=== PATIENT | female | born 1970 | race Caucasian/White ===

== ENCOUNTER 2024-10-19 16:48 | Observation (INO) | payer BC ==
--- NOTE | 2024-10-19 17:57 | ED ---
Recheck HPI - General Chief Complaint: Recheck/Abnormal Lab/Rx Stated Complaint: abn labs Time Seen by Provider: 10/19/24 17:56 Source: patient, RN notes reviewed Mode of arrival: ambulatory Limitations: no limitations - History of Present Illness Initial Comments: 54-year-old female sent by PCP for low hemoglobin. Patient states over the past year she has been dealing with heavy menstrual bleeding with clots as large as grapes. States most recent bleeding began 1 week ago and states she has been saturating through 1 pad per hour. States she has been feeling fatigued, however denies any chest pain, shortness of breath, dizziness. Has upcoming appointment with SOFT SUGAR OPERATOR HEAD in November. Denies blood thinners. Denies any other health conditions or history of blood clots - Related Data Allergies Allergy/AdvReac Type Severity Reaction Status Date / Time Penicillins Allergy Unknown Verified 10/19/24 17:09 Review of Systems ROS Statement: Those systems with pertinent positive or pertinent negative responses have been documented in the HPI. ROS Other: All systems not noted in ROS Statement are negative. Past Medical History Past Medical History: No Reported History History of Any Multi-Drug Resistant Organisms: None Reported Past Surgical History: Adenoidectomy, Tonsillectomy Past Psychological History: No Psychological Hx Reported Smoking Status: Never smoker Past Alcohol Use History: Occasional Past Drug Use History: None Reported General Exam - General Exam Comments Initial Comments: Visual Physical Exam Vital signs reviewed General: Well-appearing, nontoxic, no acute distress. Head: Normocephalic, atraumatic Eyes: PERRLA, EOMI ENT: Airway patent Chest: Nonlabored breathing Skin: No visual rash, normal skin tone Neuro: Alert and oriented 3 Musculoskeletal: No gross abnormalities Limitations: no limitations General appearance: alert, in no apparent distress, other Eye exam: Present: normal appearance, PERRL, EOMI. Absent: scleral icterus, conjunctival injection, periorbital swelling ENT exam: Present: normal exam, mucous membranes moist Respiratory exam: Present: normal lung sounds bilaterally. Absent: respiratory distress, wheezes, rales, rhonchi, stridor Cardiovascular Exam: Present: regular rate, normal rhythm, normal heart sounds. Absent: systolic murmur, diastolic murmur, rubs, gallop, clicks GI/Abdominal exam: Present: soft, normal bowel sounds. Absent: distended, tenderness, guarding, rebound, rigid Back exam: Present: normal inspection Neurological exam: Present: alert, oriented X3 Psychiatric exam: Present: normal affect, normal mood Skin exam: Present: warm, dry, intact, normal color, pallor. Absent: rash Course Vital Signs 10/19/24 10/19/24 10/19/24 17:07 19:43 20:25 Temperature 98.2 F 98.7 F 98.4 F Pulse Rate 109 H 86 79 Respiratory 18 18 16 Rate Blood Pressure 138/82 147/76 130/73 O2 Sat by Pulse 100 100 100 Oximetry 10/19/24 10/19/24 10/19/24 20:35 20:55 23:07 Temperature 98.9 F 98.2 F 98.3 F Pulse Rate 81 80 87 Respiratory 16 12 14 Rate Blood Pressure 131/78 138/71 132/76 O2 Sat by Pulse 100 100 100 Oximetry Medical Decision Making - Medical Decision Making I completed the quick note portion of this chart signed Karmen Wang PA-C Was pt. sent in by a medical professional or institution (KIRSTIN Gambino, WILDLIFE FORENSIC GENETICIST, urgent care, hospital, or long term...) When possible be specific @ -No Did you speak to anyone other than the patient for history (EMS, parent, family, police, friend...)? What history was obtained from this source @ -No Did you review nursing and triage notes (agree or disagree)? Why? @ -I reviewed and agree with nursing and triage notes Were old charts reviewed (outside hosp., previous admission, EMS record, old EKG, old radiological studies, urgent care reports/EKG's, long term records)? Report findings @ -No old charts were reviewed Differential Diagnosis (chest pain, altered mental status, abdominal pain women, abdominal pain men, vaginal bleeding, weakness, fever, dyspnea, syncope, headache, dizziness, GI bleed, back pain, seizure, CVA, palpatations, mental health, musculoskeletal)? @ -Differential Vaginal Bleeding: dysfunctional uterine bleeding, uterine fibroids, this is not meant to be an all-inclusive list. EKG interpreted by me (3pts min.). @ -None X-rays interpreted by me (1pt min.). @ -None done CT interpreted by me (1pt min.). @ -None done U/S interpreted by me (1pt. min.). @ -Ultrasound pelvis reveals uterine fibroid What testing was considered but not performed or refused? (CT, X-rays, U/S, labs)? Why? @ -None What meds were considered but not given or refused? Why? @ -None Did you discuss the management of the patient with other professionals (professionals i.e. , PA, WILDLIFE FORENSIC GENETICIST, lab, RT, psych nurse, family welfare social work professor, chemical engineering technologist, teacher, public health service officer, case management social worker)? Give summary @ -I spoke with Dr. Mckenzie check writer salesperson [facility] OPERATOR [facility] who accepts admission and recommends Provera 10 mg 3 times daily Was smoking cessation discussed for >3mins.? @ -No Was critical care preformed (if so, how long)? @ -No Were there social determinants of health that impacted care today? How? (Homelessness, low income, unemployed, alcoholism, drug addiction, transportation, low edu. Level, literacy, decrease access to med. care, half-way, rehab)? @ -No Was there de-escalation of care discussed even if they declined (Discuss DNR or withdrawal of care, Hospice)? DNR status @ -No What co-morbidities impacted this encounter? (DM, HTN, Smoking, COPD, CAD, Can cer, CVA, ARF, Chemo, Hep., AIDS, mental health diagnosis, sleep apnea, morbid obesity)? @ -None Was patient admitted / discharged? Hospital course, mention meds given and route, prescriptions, significant lab abnormalities, going to OR and other pertinent info. @ -Admitted. This is a 54-year-old female presenting for vaginal bleeding x 1 week with fatigue. Saturating through 1 pad per hour. Patient is initially tachycardic, however otherwise vital signs within acceptable limits. Hemoglobin is found to be 4.9. Ultrasound pelvis reveals uterine fibroid. Patient was started on 3 units of packed red blood cells. I spoke with Dr. Mckenzie on- call [facility] OPERATOR [facility] who accepts admission and recommends Provera 10 mg 3 times daily. Case was discussed with my ED attending Dr. Quinones. Undiagnosed new problem with uncertain prognosis? @ -No Drug Therapy requiring intensive monitoring for toxicity (Heparin, Nitro, Insulin, Cardizem)? @ -No Were any procedures done? @ -No Diagnosis/symptom? @ -Low hemoglobin, menorrhagia Acute, or Chronic, or Acute on Chronic? @ -Acute Uncomplicated (without systemic symptoms) or Complicated (systemic symptoms)? @ -Complicated Side effects of treatment? @ -No Exacerbation, Progression, or Severe Exacerbation? @ -No Poses a threat to life or bodily function? How? (Chest pain, USA, PR, pneumonia, PE, COPD, DKA, ARF, appy, cholecystitis, CVA, Diverticulitis, Homicidal, Suicidal, threat to staff... and all critical care pts) @ -Yes - Lab Data Result diagrams: 10/19/24 18:19 10/19/24 18:19 Lab Results 10/19/24 10/19/24 10/19/24 Range/Units 18:19 18:19 18:19 WBC 6.6 (3.8-10.6) k/uL RBC 3.00 L (3.80-5.40) m/uL Hgb 4.9 L* (11.4-16.0) gm/dL Hct 18.9 L* (34.0-46.0) % MCV 63.0 L (80.0-100.0) fL MCH 16.2 L (25.0-35.0) pg MCHC 25.7 L (31.0-37.0) g/dL RDW 19.0 H (11.5-15.5) % Plt Count 451 H (150-450) k/uL MPV 7.3 Neutrophils % 58 % Lymphocytes % 32 % Monocytes % 5 % Eosinophils % 1 % Basophils % 1 % Neutrophils # 3.9 (1.3-7.7) k/uL Lymphocytes # 2.1 (1.0-4.8) k/uL Monocytes # 0.3 (0-1.0) k/uL Eosinophils # 0.1 (0-0.7) k/uL Basophils # 0.0 (0-0.2) k/uL Manual Slide Review Performed Large Platelets Present Polychromasia Present Hypochromasia Marked Poikilocytosis Slight Anisocytosis Slight Microcytosis Marked Ovalocytes Present PT 10.1 (10.0-12.5) sec INR 0.9 (<1.2) APTT 20.4 L (22.0-30.0) sec Sodium 137 (137-145) mmol/L Potassium 3.9 (3.5-5.1) mmol/L Chloride 107 (98-107) mmol/L Carbon Dioxide 21 L (22-30) mmol/L Anion Gap 9 mmol/L BUN 10 (7-17) mg/dL Creatinine 0.53 (0.52-1.04) mg/dL Est GFR (CKD-EPI)AfAm >90 (>60 ml/min/1.73 sqM) Est GFR (CKD-EPI)NonAf >90 (>60 ml/min/1.73 sqM) Glucose 108 H (74-99) mg/dL Calcium 9.4 (8.4-10.2) mg/dL Total Bilirubin 0.3 (0.2-1.3) mg/dL AST 20 (14-36) U/L ALT 11 (4-34) U/L Alkaline Phosphatase 43 (38-126) U/L Total Protein 7.2 (6.3-8.2) g/dL Albumin 4.8 (3.5-5.0) g/dL Urine HCG, Qual (Not Detectd) Blood Type Blood Type Recheck Bld Type Recheck Status Antibody Screen Crossmatch 10/19/24 10/19/24 Range/Units 18:19 19:46 WBC (3.8-10.6) k/uL RBC (3.80-5.40) m/uL Hgb (11.4-16.0) gm/dL Hct (34.0-46.0) % MCV (80.0-100.0) fL MCH (25.0-35.0) pg MCHC (31.0-37.0) g/dL RDW (11.5-15.5) % Plt Count (150-450) k/uL MPV Neutrophils % % Lymphocytes % % Monocytes % % Eosinophils % % Basophils % % Neutrophils # (1.3-7.7) k/uL Lymphocytes # (1.0-4.8) k/uL Monocytes # (0-1.0) k/uL Eosinophils # (0-0.7) k/uL Basophils # (0-0.2) k/uL Manual Slide Review Large Platelets Polychromasia Hypochromasia Poikilocytosis Anisocytosis Microcytosis Ovalocytes PT (10.0-12.5) sec INR (<1.2) APTT (22.0-30.0) sec Sodium (137-145) mmol/L Potassium (3.5-5.1) mmol/L Chloride (98-107) mmol/L Carbon Dioxide (22-30) mmol/L Anion Gap mmol/L BUN (7-17) mg/dL Creatinine (0.52-1.04) mg/dL Est GFR (CKD-EPI)AfAm (>60 ml/min/1.73 sqM) Est GFR (CKD-EPI)NonAf (>60 ml/min/1.73 sqM) Glucose (74-99) mg/dL Calcium (8.4-10.2) mg/dL Total Bilirubin (0.2-1.3) mg/dL AST (14-36) U/L ALT (4-34) U/L Alkaline Phosphatase (38-126) U/L Total Protein (6.3-8.2) g/dL Albumin (3.5-5.0) g/dL Urine HCG, Qual Not Detected (Not Detectd) Blood Type A Positive Blood Type Recheck A Pos Bld Type Recheck Status No Antibody Screen NEGATIVE Crossmatch See Detail Disposition Clinical Impression: Low hemoglobin, Menorrhagia Disposition: ADMITTED IP TO THIS [facility] Referrals: Jensen Simons MD [Primary Care Provider] - 1-2 days Time of Disposition: 22:29
[2024-10-19 18:45] LABS: Anisocytosis Slight; Basophils % (A) 1 %; Eosinophils # (A) 0.1 k/uL (0-0.7); Eosinophils % (A) 1 %; Hypochromasia Marked; Lymphocytes # (A) 2.1 k/uL (1.0-4.8); Lymphocytes % (A) 32 %; MCH 16.2 pg (25.0-35.0); MCHC 25.7 g/dL (31.0-37.0); Mean Platelet Volume 7.3; Microcytosis Marked; Monocytes # (A) 0.3 k/uL (0-1.0); Monocytes % (A) 5 %; Neutrophils # (A) 3.9 k/uL (1.3-7.7); Neutrophils % (A) 58 %; Platelet Count 451 k/uL (150-450); Poikilocytosis Slight; WBC 6.6 k/uL (3.8-10.6)
[2024-10-19 18:55] LABS: ALT 11 U/L (4-34); AST 20 U/L (14-36); African American GFR (CKD) >90 (>60 ml/min/1.73 sqM); Albumin 4.8 g/dL (3.5-5.0); Alkaline Phosphatase 43 U/L (38-126); Anion Gap 9 mmol/L; Blood Urea Nitrogen 10 mg/dL (7-17); Calcium 9.4 mg/dL (8.4-10.2); Carbon Dioxide 21 mmol/L (22-30); Chloride 107 mmol/L (98-107); Glucose 108 mg/dL (74-99); Non-African American GFR(CKD) >90 (>60 ml/min/1.73 sqM); Potassium 3.9 mmol/L (3.5-5.1); Sodium 137 mmol/L (137-145); Total Bilirubin 0.3 mg/dL (0.2-1.3); Total Protein 7.2 g/dL (6.3-8.2)
[2024-10-19 18:59] LABS: HGB 4.9 gm/dL (11.4-16.0)
[2024-10-19 19:00] LABS: HCT 18.9 % (34.0-46.0); INR 0.9 (<1.2); Prothrombin Time 10.1 sec (10.0-12.5)
[2024-10-19 19:08] LABS: Partial Thromboplastin Time 20.4 sec (22.0-30.0)
--- NOTE | 2024-10-19 19:09 | US ---
EXAMINATION TYPE: US transvaginal DATE OF EXAM: 10/19/2024 COMPARISON: NONE CLINICAL INDICATION: Female, 54 years old with history of heavy vaginal bleeding; Patient states heav y vaginal bleeding and irregular periods for 1 year. . No pain TECHNIQUE: Transvaginal (TV). Transabdominal grayscale sonographic images of the pelvis were acquired. Transvaginal sonographic im ages were medically necessary to better assess the following anatomy: Endometrium Doppler imaging: Not performed. FINDINGS: Date of LMP: 10/08/2024 EXAM MEASUREMENTS: Uterus: 10.9 x 8.3 x 8.4 cm Endometrial Stripe: 1.2 cm Right Ovary: Obscured by overlying bowel gas Left Ovary: Obscured by overlying bowel gas 1. Uterus: Anteverted There are multiple heterogeneous lesions with posterior shadowing seen, larges t measuring 5.5 x 5.3 x 5.5cm within the right side of the uterus. Probable fibroids vs other etiolog y 2. Endometrium: wnl 3. Right Ovary: Obscured by overlying bowel gas 4. Left Ovary: Obscured by overlying bowel gas 5. Bilateral Adnexa: wnl 6. Posterior cul-de-sac: wnl IMPRESSION: Fibroid uterus. [facility], , 10/19/2024 7:07 PM
[2024-10-19 19:32] LABS: Polychromasia Present
[2024-10-19 19:33] LABS: Ovalocytes Present
[2024-10-19 19:34] LABS: Large Platelets Present
[2024-10-19] MEDS ORDERED: ONDANSETRON 4 MG/2 ML VIAL IVP PRN (22:23)
[2024-10-19] MEDS ORDERED: NALOXONE 0.4 MG/ML 1 ML VIAL IV PRN (22:23)
[2024-10-19] MEDS ORDERED: MORPHINE SULFATE 4 MG/ML SYRINGE IV PRN (22:23)
[2024-10-19] MEDS ORDERED: HYDROmorphone 0.5 MG/0.5 ML SYRINGE IVP PRN (22:23)
[2024-10-20 03:47] LABS: % Iron Saturation 1.83 (12.00-45.00); Ferritin 2.6 ng/mL (10.0-291.0)
[2024-10-20] MEDS ORDERED: ACETAMINOPHEN TAB 325 MG TAB PO PRN (07:20)
[2024-10-20] MEDS ORDERED: IBUPROFEN 600 MG TAB PO PRN (07:20)
[2024-10-20 07:45] LABS: Anisocytosis Moderate; Basophils # (A) 0.1 k/uL (0-0.2); Basophils % (A) 1 %; Eosinophils # (A) 0.1 k/uL (0-0.7); Eosinophils % (A) 3 %; Hypochromasia Marked; Lymphocytes # (A) 1.4 k/uL (1.0-4.8); Lymphocytes % (A) 29 %; MCH 21.4 pg (25.0-35.0); MCHC 30.1 g/dL (31.0-37.0); Mean Platelet Volume 8.5; Microcytosis Marked; Monocytes # (A) 0.3 k/uL (0-1.0); Monocytes % (A) 7 %; Neutrophils # (A) 2.7 k/uL (1.3-7.7); Neutrophils % (A) 57 %; Platelet Count 355 k/uL (150-450); Poikilocytosis Marked; RBC 3.95 m/uL (3.80-5.40); RDW 21.7 % (11.5-15.5); WBC 4.7 k/uL (3.8-10.6)
[2024-10-20 07:49] LABS: HGB 8.4 gm/dL (11.4-16.0)
--- NOTE | 2024-10-20 07:54 | P.HPOB ---
History of Present Illness H&P Date: 10/20/24 Chief Complaint: Symptomatic anemia, abnormal uterine bleeding Ms. Joe is a 54 year old who was sent to the ER by her PCP for Hemoglobin of 4 after initially being evaluated for heavy bleeding and fatigue. The patient states she has been having near constant bleeding for the past year and it continues to get worse. She does not think she has ever gone through max pause. She does not regularly follow with an OBGYN. Her last pelvic exam may have been years ago with her last . Hgb was 4.9 in the ER, the patient was transfused 3 units of packed RBCs. Pelvic US shows an enlarged 11 centimeter uterus with multiple fibroids, largest measuring 5.5 centimeters. OBGYN history: 4 FTVDs, 1 SAB. Does not have regular gynecologic care. PMH: Patient denies Medications: None Surgical history: None Social history: Negative x3 Past Medical History Past Medical History: No Reported History History of Any Multi-Drug Resistant Organisms: None Reported Past Surgical History: Adenoidectomy, Tonsillectomy Past Psychological History: No Psychological Hx Reported Smoking Status: Never smoker Past Alcohol Use History: Occasional Past Drug Use History: None Reported Medications and Allergies Home Medications Medication Instructions Recorded Confirmed Type No Known Home Medications 10/20/24 10/20/24 History Allergies Allergy/AdvReac Type Severity Reaction Status Date / Time Penicillins Allergy Unknown Verified 10/20/24 07:42 Childhood Exam Vital Signs Temp Pulse Resp BP Pulse Ox 10/20/24 06:00 73 18 112/56 99 10/20/24 05:00 67 18 113/70 99 10/20/24 04:00 71 18 121/72 98 10/20/24 03:49 98.2 F 74 16 137/75 99 10/20/24 01:54 97.6 F 72 16 127/76 99 10/20/24 01:34 98.3 F 73 18 125/76 98 10/20/24 01:24 97.7 F 77 16 123/84 10/20/24 01:15 98.3 F 75 16 128/83 100 10/19/24 23:54 98.1 F 76 16 130/81 100 10/19/24 23:52 98.3 F 74 16 128/78 100 10/19/24 23:34 98.2 F 80 16 127/58 100 10/19/24 23:26 98.1 F 89 16 115/74 100 10/19/24 23:07 98.3 F 87 14 132/76 100 10/19/24 20:55 98.2 F 80 12 138/71 100 10/19/24 20:35 98.9 F 81 16 131/78 100 10/19/24 20:25 98.4 F 79 16 130/73 100 10/19/24 19:43 98.7 F 86 18 147/76 100 10/19/24 17:07 98.2 F 109 H 18 138/82 100 Intake and Output 10/19/24 10/20/24 10/20/24 22:59 06:59 14:59 Intake Total 0 930 Balance 0 930 Intake: Blood Product 0 930 Rc As-1 Unit 310 [id number] Rc As-1 Unit 0 310 [id number] Rc As-1 Unit 310 [id number] Other: Weight 61.235 kg Focused physical exam is performed. This is a healthy-appearing female in no apparent distress. Breathing is non-labored. Abdomen is soft and non-tender. Bimanual exam reveals a 12 week sized bulky uterus, non-tender. Extremities non- tender, non-edematous. Results Result Diagrams: 10/19/24 18:19 10/19/24 18:19 Abnormal Lab Results - Last 24 Hours (Table) 10/19/24 10/19/24 10/19/24 Range/Units 18:19 18:19 18:19 RBC 3.00 L (3.80-5.40) m/uL Hgb 4.9 L* (11.4-16.0) gm/dL Hct 18.9 L* (34.0-46.0) % MCV 63.0 L (80.0-100.0) fL MCH 16.2 L (25.0-35.0) pg MCHC 25.7 L (31.0-37.0) g/dL RDW 19.0 H (11.5-15.5) % Plt Count 451 H (150-450) k/uL APTT 20.4 L (22.0-30.0) sec Carbon Dioxide 21 L (22-30) mmol/L Glucose 108 H (74-99) mg/dL Iron (50-170) UG/DL TIBC (228-460) UG/DL % Saturation (12.00-45.00) Transferrin (204.0-354.0) mg/dL Ferritin (10.0-291.0) ng/mL Crossmatch 10/19/24 10/19/24 Range/Units 18:19 18:19 RBC (3.80-5.40) m/uL Hgb (11.4-16.0) gm/dL Hct (34.0-46.0) % MCV (80.0-100.0) fL MCH (25.0-35.0) pg MCHC (31.0-37.0) g/dL RDW (11.5-15.5) % Plt Count (150-450) k/uL APTT (22.0-30.0) sec Carbon Dioxide (22-30) mmol/L Glucose (74-99) mg/dL Iron 10 L (50-170) UG/DL TIBC 545 H (228-460) UG/DL % Saturation 1.83 L (12.00-45.00) Transferrin 389.0 H (204.0-354.0) mg/dL Ferritin 2.6 L (10.0-291.0) ng/mL Crossmatch See Detail Assessment and Plan Assessment: 54 year old with symptomatic AUB-L Plan: 1. Symptomatic anemia. Hgb 4.9 > 3u pRBCs > repeat CBC pending. Hemodynamically stable. 2. Uterine fibroids. Provera 10mg TID ordered to stop current episode of bleeding. 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 3. AUB. Patient should have endometrial biopsy outpatient to rule out hyperplasia and malignancy. Dispo: Admit to SWEAT BOX ATTENDANT service until Hemoglobin stabilized and bleeding improved. Needs close follow up outpatient for EMB and discussion on surgical management.
[2024-10-20] MEDS: medroxyPROGESTERone 150 MG/ML 1ML VIAL IM SCH (10:36)
[2024-10-20] MEDS: medroxyPROGESTERone 10 MG TABLET PO SCH (18:00)
[2024-10-21 11:17] LABS: HCT 30.2 % (37.2-46.3); HGB 8.5 g/dL (12.0-15.0); MCH 20.5 pg (27.0-32.0); MCHC 28.1 g/dL (32.0-37.0); MCV 72.9 FL (80.0-97.0); Mean Platelet Volume 10.1 FL (9.5-12.2); NRBC Per 100 WBC 0 X 10*3/uL (0.00-0.01); Platelet Count 372 X 10*3/uL (140-440); RBC 4.14 X 10*6/uL (4.10-5.20); RDW 25.3 % (11.5-14.5); WBC 5.34 X 10*3/uL (4.50-10.00)
[2024-10-21 12:27] LABS: Basophils # (A) 0.08 X 10*3/uL (0.00-0.10); Basophils % (A) 1.5 %; Elliptocytes 2+ (None Seen); Eosinophils % (A) 3.7 %; Hypochromasia (M) 2+ (None Seen); Lymphocytes # (A) 1.83 X 10*3/uL (0.90-5.00); Lymphocytes % (A) 34.3 %; Microcytosis (M) 2+ (None Seen); Monocytes # (A) 0.59 X 10*3/uL (0.20-1.00); Neutrophils # (A) 2.63 X 10*3/uL (1.80-7.70); Neutrophils % (A) 49.3 %; Schistocytes 2+ (None Seen)
[2024-10-22 07:48] VITALS: BP 130/73; PULSE 73; RESP 16; TEMP 98.2
--- NOTE | 2024-10-22 10:05 | P.DS ---
Providers Date of admission: 10/19/24 22:28 Expected date of discharge: 10/22/24 Attending physician: Nela Mckenzie MD Primary care physician: Jensen Simons - Discharge Diagnosis(es) (1) Fibroid uterus Current Visit: Yes Status: Acute (2) Anemia due to acute blood loss Current Visit: Yes Status: Acute (3) Menorrhagia Current Visit: Yes Status: Acute Hospital Course: [id number] female presented with a hemoglobin of 4.9 after having very heavy vaginal bleeding. She has a fibroid uterus. She was given 3 units of packed red blood cells her hemoglobin came up to 8.4 in stable today at 8.5. Her bleeding has slowed. She did take a couple pills of Provera but then discontinued them because she was under the impression that her contraceptives and for amish reasons she will not take this. I did discuss this with her expressed that I would like her to take the Provera until she can see her GLOBAL CLINICAL LEADER in [place] for a follow-up Pap smear and endometrial biopsy. Patient refuses and since her hemoglobin is stable I will not force the issue. I did recommend iron folic acid 2 help. Patient is discharged home in stable condition to follow-up with her own gear cutting machine set up operator in the next few days. Plan - Discharge Summary Discharge Rx Participant: No New Discharge Prescriptions: No Action No Known Home Medications Discharge Medication List No Known Home Medications 10/20/24 [History] Follow up Appointment(s)/Referral(s): Jensen Simons MD [Primary Care Provider] - 1-2 days Discharge Disposition: HOME SELF-CARE
[2024-10-22 13:21] LABS: Basophils # (A) 0.08 X 10*3/uL (0.00-0.10); Basophils % (A) 1.2 %; Eosinophils # (A) 0.24 X 10*3/uL (0.04-0.35); Eosinophils % (A) 3.7 %; HCT 30.5 % (37.2-46.3); HGB 8.5 g/dL (12.0-15.0); Lymphocytes # (A) 2.34 X 10*3/uL (0.90-5.00); Lymphocytes % (A) 35.9 %; MCH 20.7 pg (27.0-32.0); MCHC 27.9 g/dL (32.0-37.0); MCV 74.4 FL (80.0-97.0); Monocytes # (A) 0.65 X 10*3/uL (0.20-1.00); NRBC Per 100 WBC 0 X 10*3/uL (0.00-0.01); Platelet Count 395 X 10*3/uL (140-440); RDW 26.3 % (11.5-14.5); WBC 6.52 X 10*3/uL (4.50-10.00)
== END 2024-10-22 10:49 | disposition home or self-care (01) ==
LOC: EC 16:48 → 3SCARD 22:28 → INTOOBSV 22:28 → 5NMEDONC 10-20 07:55
PROVIDERS: ADMIT Obstetrics & Gynecology; ATTEND Obstetrics & Gynecology
DX: D62 Acute posthemorrhagic anemia (principal); D25.9 Leiomyoma of uterus, unspecified; N92.0 Excessive and frequent menstruation with regular cycle; Z91.148 Patient's other noncompliance with medication regimen for other reason; Z88.0 Allergy status to penicillin
CPT/HCPCS: 99285; 36415; 86900; 86901; 80053; 82728; 83540; 83550; 85025 ×4; 85610; 85730; 86850; 86920; 81025; 76830; G0378 ×3; P9016 ×2; 36430